=== PATIENT | male | born 1985 ===

== ENCOUNTER 2021-05-25 17:48 | Emergency (ER) | payer MEDICARE, MEDICAID, SELFPAY ==
[2021-05-25 17:51] VITALS: BP 153/83; PULSE 130; RESP 16; TEMP 36.6; O2SAT 96
--- NOTE | 2021-05-25 18:25 | NUR.NOTE ---
Nursing Note: Animal bite report faxed to [facility]. 1823 message left on home phone for Miryam Manzo, health officer, about this animal bite and the need for follow up. Dolores Andrea
--- NOTE | 2021-05-25 18:40 | ED.GENADUL_ITS ---
Discharge Plan Disposition Patient Disposition: HOME Condition: Stable Discharge Details Clinical Impression: Dog bite Primary Care Provider: Johnny Marshall ED Provider: Verona Wolfe Home Meds and New Rx's Prescriptions: Continued triamcinolone acetonide 0.1 % cream 1 applic topical DAILY PRN (Reason: rash) Qty: 80 3RF Rx Instructions: Not for face tacrolimus 0.1 % ointment 1 applic topical BID Qty: 30 6RF Rx Instructions: Apply to face albuterol sulfate 90 mcg/actuation HFA aerosol inhaler 2 puff inhalation Q6H PRN (Reason: shortness of breath or wheezing) Qty: 18 6RF acetaminophen [Tylenol] 325 mg tablet 325 - 650 mg PO PRN 0RF Systane (propylene glycol) 0.4-0.3 % drops 2 drp ophthalmic (eye) QID 0RF ibuprofen 200 mg tablet 200 - 400 mg PO Q6H PRN0RF Discharge Instructions Instructions: Animal Bite (ED) Additional Instructions: Return for your rabies vaccine on 05/28, 06/01, and 06/08 Keep wound clean and dry I did not feel like you need antibiotics for this, but should you develop surrounding redness, fever, worsening pain, please return to the emergency room for reassessment Referrals: Johnny Marshall DO [Primary Care Provider] - Medical Decision Making Reported to animal control, patient's tetanus is up-to-date Rabies vaccine and immunoglobulin initiated We will need rabies vaccine 3, 7, and 14 Immunoglobulin injected around the bite site I considered antibiotics, however patient had an abrasion and no puncture or laceration as you feel that patient does not warrant antibiotics at this time, they were offered and he will monitor the wound closely daily Medical Records Medical records reviewed: Yes I reviewed the patient's medical records. Lab Data Lab results reviewed: Yes I reviewed the patient's lab results. HPI General Date/Time Provider Initiated Documentation: 05/25/21 17:52 . HPI Narrative: This 36-year-old gentleman presents with report of dog bite just prior to arrival to his left upper arm. He was reportedly attacked by a new dog that he is currently living with. He states he is unsure regarding the rabies status and does not feel comfortable asking the orders regarding rabies status. He is also unsure as to whether or not the document quarantine. He states he has some scratches on his back. He denies any additional injuries aside from his back and left upper extremity. Related Data Home Medications Medication Instructions Recorded Confirmed acetaminophen 325 mg tablet 325 - 650 mg PO PRN tab 03/19/20 05/25/21 (Tylenol) ibuprofen 200 mg tablet 200 - 400 mg PO Q6H PRN tab 03/19/20 05/25/21 peg 400-propylene glycol 0.4 %-0.3 2 drp OPHTHALMIC (EYE) QID ml 03/19/20 05/25/21 % eye drops (Systane (propylene glycol)) albuterol sulfate 90 mcg/actuation 2 puff INHALATION Q6H PRN #18 g 04/02/20 05/25/21 aerosol inhaler tacrolimus 0.1 % topical ointment 1 applic TOPICAL BID #30 g 04/02/20 05/25/21 triamcinolone acetonide 0.1 % 1 applic TOPICAL DAILY PRN #80 g 04/02/20 05/25/21 topical cream Previous Rx's Medication Instructions Recorded albuterol sulfate 90 mcg/actuation 2 puff INHALATION Q6H PRN #18 g 04/02/20 aerosol inhaler tacrolimus 0.1 % topical ointment 1 applic TOPICAL BID #30 g 04/02/20 triamcinolone acetonide 0.1 % 1 applic TOPICAL DAILY PRN #80 g 04/02/20 topical cream Allergies Allergy/AdvReac Type Severity Reaction Status Date / Time codeine Allergy Severe vomiting Verified 05/25/21 18:00 General Stated Complaint: AnimalBite STEFFANIE: 4 Review of Systems All systems reviewed & are unremarkable except as noted in HPI and below PFSH All Active Problems (Updated 05/25/21 @ 18:51 by WILD Milner) Dog bite (Acute) Shy bladder syndrome (Acute) Family history of coronary arteriosclerosis (Chronic) Xerosis cutis (Acute) Unspecified disorder of eye and adnexa (Acute) Unspecified asthma (Chronic) Personal history of other mental and behavioral disorders (Acute) Mobility impaired (Acute) Family History (Updated 03/19/20 @ 11:19 by Grace Dasilva) Father Asthma Diabetes Hypertension Maternal Grandmother Asthma Social History (Updated 03/19/20 @ 11:18 by Grace Dasilva) Smoking/Tobacco Use Status: Never Smoking risk assessment performed?: Yes Alcohol Intake: never Drug use: Daily Substance use type: marijuana Details: no IV drug use Adopted: No Caregiver/Support person: No Foster care: No Household members: none Housing: apartment Do you need help understanding health information?: Rarely Sexually active: No Do you think of yourself as: straight/heterosexual Current gender identity: male Exam Const General: cooperative, comfortable and no acute distress Resp Effort & Inspection: normal respiratory effort Auscultation: clear to auscultation bilaterally Cardio Rate: regular rate Rhythm: regular rhythm Other: Distal pulses intact Skin Full body images: 1. Abrasion and bite noted Neuro General: patient alert and patient oriented x3 Other: Sensation intact distally Extrem Shoulder/upper arm images: 1. Scratches noted nontender 2. Course Vital Signs Vital signs: Vital Signs Temperature 36.6 C 05/25/21 17:51 Pulse 130 H 05/25/21 17:51 Respiratory Rate 16 05/25/21 17:51 Blood Pressure 153/83 H 05/25/21 17:51 Pulse Oximetry 96 05/25/21 17:51 Temperature 36.6 C 05/25/21 17:51 Temperature Source Temporal Artery Scan 05/25/21 17:51 Pulse 130 H 05/25/21 17:51 Respiratory Rate 16 05/25/21 17:51 Respiratory Effort 05/25/21 17:58 Blood Pressure 153/83 H 05/25/21 17:51 Blood Pressure Position Sitting 05/25/21 17:51 Pulse Oximetry 96 05/25/21 17:51 Oxygen Delivery Method Room Air 05/25/21 17:51 Oxygen Flow Rate 0 05/25/21 17:51 Pain Level 0 05/25/21 17:51
[2021-05-25 18:56] VITALS: PULSE 108
[2021-05-25] MEDS: Rabies Immune Globulin 300 UNIT/ML VIAL 1551.28 UNIT IM (20:13)
== END 2021-05-25 20:14 | disposition home or self-care (01) ==
PROVIDERS: Emergency Provider Physician Assistant; PCP Family Medicine
DX: S41.152A Open bite of left upper arm, initial encounter (principal); W54.0XXA Bitten by dog, initial encounter
CPT/HCPCS: 90471; 96372; 99284; 90675; 99283

== ENCOUNTER 2021-06-01 01:06 | Outpatient (RCR) | payer MEDICARE, MEDICAID, SELFPAY | END 2021-06-07 23:59 | disposition home or self-care (01) | LOC: INF 01:06 | PROVIDERS: PCP Family Medicine; Visit Provider Physician Assistant | DX: Z20.3 Contact with and (suspected) exposure to rabies (principal) | CPT/HCPCS: 90471; 90675 ==

== ENCOUNTER 2021-06-08 00:24 | Outpatient (RCR) | payer MEDICARE, MEDICAID, SELFPAY | END 2021-07-08 23:59 | disposition home or self-care (01) | LOC: INF 00:24 | PROVIDERS: PCP Family Medicine; Visit Provider Physician Assistant | DX: Z20.3 Contact with and (suspected) exposure to rabies (principal) | CPT/HCPCS: 90471; 90675 ==